=== PATIENT | male | born 1960 ===

== ENCOUNTER 2022-05-21 07:28 | Outpatient (CLI) | payer OTHER | END 2022-05-21 07:35 | disposition home or self-care (01) | LOC: SONOGRAMA 07:28 | PROVIDERS: ATTEND Internal Medicine Endocrinology, Diabetes & Metabolism | DX: C73 Malignant neoplasm of thyroid gland (principal); E89.0 Postprocedural hypothyroidism ==

== ENCOUNTER 2022-06-06 08:05 | Outpatient (CLI) | payer OTHER | END 2022-06-06 08:08 | disposition home or self-care (01) | LOC: SONOGRAMA 08:05 | PROVIDERS: ATTEND Pathology Anatomic Pathology & Clinical Pathology | DX: R59.9 Enlarged lymph nodes, unspecified (principal); C73 Malignant neoplasm of thyroid gland ==

== ENCOUNTER → 2023-04-10 | Outpatient (CLI) | payer OTHER | END | disposition home or self-care (01) | LOC: MRI 10:12 | DX: M54.59 Other low back pain (principal) | CPT/HCPCS: 72148 ==